=== PATIENT | female | born 1945 | race Caucasian/White ===

== ENCOUNTER 2017-09-16 18:45 | Emergency (ER) | payer MEDICARE, BC ==
[2017-09-16 19:09] VITALS: BP 164/86
--- NOTE | 2017-09-16 20:29 | EDM.PDOC ---
ED HPI GENERAL MEDICAL PROBLEM - General Chief Complaint: Cardiovascular Problem Stated Complaint: NEEDS LUNGS CHECKED-CHEMO PT Time Seen by Provider: 09/16/17 19:24 Source of Information: Reports: Patient, Family History Limitations: Reports: No Limitations - History of Present Illness INITIAL COMMENTS - FREE TEXT/NARRATIVE: This is a 72-year-old female. She has lymphoma. She got her last chemotherapy on August 24 and was released from the hospital last Tuesday. Her platelet count when she left the hospital was on 09/13 was 19,000 with a white count of 4.6 for hemoglobin of 9.2. On 09/16 the white count was 2.99 with a hemoglobin of 9.1 and platelets of 36,000. She states that since she's been out of the hospital whenever she tries to walk she starts getting very short of breath and her heart starts to pound she can only walk may be 20 feet and she has to sit down. She has no history of congestive heart failure. She states her legs are not any more swollen than they normally are. She has been drinking lots of fluids she has been eating she's been urinating and defecating okay. She is scheduled for a PET scan on the . She denies any fever or chills. She does have some chronic sinus drainage noted but no cough. Whenever she gets short of breath and has that heart pounding should develop some pressure in her chest. Once the shortness of breath, down in the pounding goes away the chest pressure goes away. Fever no chills no nausea or vomiting. Patient has gone through the fourth cycle of her chemotherapy which is the last one. - Related Data Allergies Allergy/AdvReac Type Severity Reaction Status Date / Time metolazone AdvReac Dizziness Verified 03/22/17 07:42 Home Meds: Home Meds Allopurinol 100 mg PO DAILY 03/03/14 [History] Losartan [Cozaar] 100 mg PO DAILY 03/03/14 [History] Metoprolol Tartrate 50 mg PO DAILY 03/03/14 [History] Multivit-Min/FA/Lycopene/Lut [Centrum Silver] 1 mg PO DAILY 03/03/14 [History] Nitroglycerin [Nitrostat] 0.4 mg SL ASDIRECTED PRN 03/03/14 [History] Olopatadine [Pataday 0.2% Ophth Soln] 1 drop OP DAILY PRN 03/03/14 [History] Diltiazem [Dilacor XR] 240 mg PO ACBRK #30 cap.er 03/06/14 [Rx] Cholecalciferol (Vitamin D3) [Vitamin D3] 1 tab PO DAILY 08/02/17 [History] Ondansetron [Zofran] 4 mg TOP ASDIRECTED 08/02/17 [History] Scopolamine [Transderm-Scop] 1 each TD ASDIRECTED 08/02/17 [History] Furosemide [Lasix] 20 mg PO DAILY #5 tab 09/16/17 [Rx] Potassium Bicarb/Potassium Chl [Potassium Chloride] 25 meq PO DAILY #5 tab.eff 09/16/17 [Rx] Past Medical History HEENT History: Reports: Impaired Vision, Sinusitis Cardiovascular History: Reports: Afib Respiratory History: Reports: SOB Gastrointestinal History: Reports: Chronic Diarrhea [employer] History: Reports: Musculoskeletal History: Reports: Arthritis Endocrine/Metabolic History: Reports: Diabetes, Type II Hematologic History: Reports: Anemia, Blood Transfusion(s) Oncologic (Cancer) History: Reports: Other (See Below) Other Oncologic History: B cell lymphoma large - Past Surgical History Cardiovascular Surgical History: Reports: Coronary Artery Stent Female Surgical History: Reports: Hysterectomy Social & Family History - Family History Family Medical History: Noncontributory - Tobacco Use Smoking Status *Q: Never Smoker Years of Tobacco use: 19 Used Tobacco, but Quit: Yes Month Tobacco Last Used: JUL - Caffeine Use Caffeine Use: Reports: Coffee - Alcohol Use Days Per Week of Alcohol Use: 0 - Recreational Drug Use Recreational Drug Use: No ED ROS GENERAL - Review of Systems Review Of Systems: See Below Constitutional: Reports: Malaise, Weakness, Fatigue. Denies: Fever, Chills HEENT: Reports: Sinus Problem Respiratory: Reports: Shortness of Breath. Denies: Wheezing, Cough Cardiovascular: Reports: Chest Pain, Edema. Denies: PND GI/Abdominal: Denies: Diarrhea, Nausea, Vomiting : Reports: No Symptoms Musculoskeletal: Reports: Other (Generalized extremity weakness) Skin: Reports: Pallor Neurological: Reports: No Symptoms Psychiatric: Reports: No Symptoms Hematologic/Lymphatic: Reports: Anemia ED EXAM, GENERAL - Physical Exam Exam: See Below Exam Limited By: No Limitations General Appearance: Alert, No Apparent Distress, Obese, Other (Very pale) Eye Exam: Bilateral Eye: Normal Inspection Ears: Normal External Exam, Normal Canal, Normal TMs Nose: Normal Inspection. No: Nasal Drainage, Clear Rhinorrhea Throat/Mouth: Normal Inspection, Normal Lips, Normal Oropharynx, Normal Voice, No Airway Compromise Head: Normocephalic Neck: Supple Respiratory/Chest: No Respiratory Distress, Lungs Clear, Normal Breath Sounds. No: Crackles, Rales, Rhonchi, Wheezing Cardiovascular: No Murmur, Irregularly Irregular GI/Abdominal: Other (Obese mild upper abdominal tenderness which is chronic no lower abdominal tenderness noted, no distention.) Back Exam: Decreased Range of Motion Extremities: Other (She has limited range of motion of her lower extremities just due to her condition, she does have puffy swelling noted and her feet and ankles and mildly in her lower legs, her upper extremities appear to be without abnormality) Neurological: Alert, Oriented Psychiatric: Normal Affect, Normal Mood Skin Exam: Warm, Dry, Pallor EKG INTERPRETATION EKG Interpretation Comments: EKG has atrial fibrillation, but there is no acute ST or T-wave changes and no ischemia and the rate is controlled. Course - Vital Signs Last Recorded V/S: Last Vital Signs Temp 97.5 F 09/16/17 19:05 Pulse 98 09/16/17 19:05 Resp 18 09/16/17 19:05 BP 164/86 H 09/16/17 19:05 Pulse Ox 97 09/16/17 19:05 - Orders/Labs/Meds Orders: Active Orders 24 hr Category Date Time Status EKG 12 Lead [EKG Documentation Completion] [RC] URGENT Care 09/16/17 20:00 Active Chest 2V [CR] Stat Exams 09/16/17 20:04 Taken Labs: Laboratory Tests 09/16/17 09/16/17 09/16/17 Range/Units 20:08 20:08 20:08 WBC 2.99 L (3.98-10.04) K/mm3 RBC 3.16 L (3.98-5.22) M/mm3 Hgb 9.1 L (11.2-15.7) gm/L Hct 27.0 L (34.1-44.9) % MCV 85.4 (79.4-94.8) fl MCH 28.8 (25.6-32.2) pg MCHC 33.7 (32.2-35.5) g/dl RDW Std Deviation 43.2 (36.4-46.3) fL Plt Count 36 L (182-369) K/mm3 MPV 11.6 (9.4-12.3) fl Neut % (Auto) 40.8 (34.0-71.1) % Lymph % (Auto) 29.1 (19.3-51.7) % Sierra % (Auto) 25.1 H (4.7-12.5) % Eos % (Auto) 0 L (0.7-5.8) Baso % (Auto) 0.3 (0.1-1.2) % Neut # (Auto) 1.22 L (1.56-6.13) K/mm3 Lymph # (Auto) 0.87 L (1.18-3.74) K/mm3 Sierra # (Auto) 0.75 H (0.24-0.36) K/mm3 Eos # (Auto) 0.00 L (0.04-0.36) K/mm3 Baso # (Auto) 0.01 (0.01-0.08) K/mm3 Manual Slide Review Abnormal smear Sodium 142 (136-145) mEq/L Potassium 3.3 L (3.5-5.1) mEq/L Chloride 104 (98-107) mEq/L Carbon Dioxide 27 (21-32) mEq/L Anion Gap 14.3 (5-15) BUN 12 (7-18) mg/dL Creatinine 0.8 (0.55-1.02) mg/dL Est Cr Clr Drug Dosing 53.28 mL/min Estimated GFR (MDRD) > 60 (>60) mL/min BUN/Creatinine Ratio 15.0 (14-18) Glucose 146 H (83-115) mg/dL Calcium 8.8 (8.5-10.1) mg/dL Total Bilirubin 0.4 (0.2-1.0) mg/dL AST 27 (15-37) U/L ALT 30 (14-59) U/L Alkaline Phosphatase 122 H (46-116) U/L Troponin I < 0.017 (0.00-0.056) ng/mL NT-Pro-B Natriuret Pep 659 H (0-125) pg/mL Total Protein 6.2 L (6.4-8.2) g/dl Albumin 3.0 L (3.4-5.0) g/dl Globulin 3.2 gm/dL Albumin/Globulin Ratio 0.9 L (1-2) - Radiology Interpretation Free Text/Narrative:: Chest x-ray does not suggest a large amount of congestive failure and there are no infiltrates noted. - Re-Assessments/Exams Free Text/Narrative Re-Assessment/Exam: 09/16/17 22:07 I spoke to the patient and the daughter regarding the lab work. Her white count has gone from 4.6 on the of 2.99 but her absolute white count tonight is 1200. Her hemoglobin has gone from 9.8 to 9.1. Her platelets have gone from 19, 000 to 36,000. It should be noted that her BNP was elevated. I spoke to Dr. Brennan at [facility] in [place] who is flight operations coordinator for oncology and he indicated that she in the hospital she would collect fluid as well. So we believe she is in some mild congestive failure as causing her shortness of breath or palpitations. He suggested we start Lasix 20 mg a day with 40 mEq of potassium and do this for about 5-7 days. I spoke to the family regarding this and she needs to take it easy especially over the weekend and not be too mobile and avoid getting short of breath. 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 Prescriptions: Furosemide [Lasix] 20 mg PO DAILY #5 tab Potassium Bicarb/Potassium Chl [Potassium Chloride] 25 meq PO DAILY #5 tab.eff Referrals: Norman Elizalde MD [Primary Care Provider] - Forms: ED Department Discharge Additional Instructions: When your home taking it easy over the weekend, avoid getting up and getting short of breath or having the heart palpitations if you can, take the Lasix 20 mg tablet and the 2 potassium tablets when you get home, didn't take the Lasix tablet and 2 more potassium tablets Saturday evening, then on Tuesday get the prescriptions filled, follow-up with your oncologist on Tuesday by giving him a call about how you're feeling, if your symptoms seem to worsen return to the ER over the weekend - My Orders Last 24 Hours: My Active Orders 09/16/17 20:00 EKG 12 Lead [EKG Documentation Completion] [RC] URGENT 09/16/17 20:04 Chest 2V [CR] Stat - Assessment/Plan Last 24 Hours: My Active Orders 09/16/17 20:00 EKG 12 Lead [EKG Documentation Completion] [RC] URGENT 09/16/17 20:04 Chest 2V [CR] Stat
[2017-09-16] MEDS ORDERED: Furosemide 20 MG Tab PO ONE (22:05)
[2017-09-16] MEDS ORDERED: Potassium Chloride 20 MEQ Tab.ER PO ONE (22:06)
--- NOTE | 2017-09-17 14:30 | CR ---
Chest: Two views of the chest were obtained. Comparison: Prior chest x-ray of 03/03/14. Heart size is normal. Tortuous thoracic aorta is seen. Minimal atelectasis is noted within the right lateral costophrenic angle. Lungs otherwise are clear. Prior right shoulder surgery is seen. Scoliosis and degenerative spurring is noted within the spine. Impression: 1. Slight atelectasis within the right lateral costophrenic angle. 2. Other incidental findings. Nothing acute is seen. Diagnostic code #2
== END 2017-09-16 22:24 | disposition home or self-care (01) ==
LOC: JD.ED 18:45
DX: I50.9 Heart failure, unspecified (principal); I48.91 Unspecified atrial fibrillation; D64.81 Anemia due to antineoplastic chemotherapy; C85.10 Unspecified B-cell lymphoma, unspecified site; D69.6 Thrombocytopenia, unspecified; D70.2 Other drug-induced agranulocytosis; E11.9 Type 2 diabetes mellitus without complications; Z95.5 Presence of coronary angioplasty implant and graft; Z87.891 Personal history of nicotine dependence; Z79.899 Other long term (current) drug therapy; Z88.8 Allergy status to other drugs, medicaments and biological substances
CPT/HCPCS: 36415; 71046; 71046-26; 80053; 83880; 84484; 85025; 93005; 99284; 99285-25

== ENCOUNTER 2023-11-13 17:38 | Emergency (ER) | payer MEDICARE, BC ==
[2023-11-13] MEDS: Sodium Chloride 0.9% 10 ML Syringe FLUSH PRN ×2 (18:27→19:35)
[2023-11-13 18:34] LABS: BASOPHILS PERCENT AUTO 0.4 % (0.0-1.0); EOSINOPHILS ABSOLUTE AUTO 0.2 K/mm3 (0.0-0.4); EOSINOPHILS PERCENT AUTO 3.9 % (0.0-6.0); HEMATOCRIT 34.2 % (37.0-47.0); HEMOGLOBIN 10.6 gm/dl (12.0-16.0); IMMATURE GRAN ABSOLUTE AUTO 0.03 K/mm3 (0.00-0.05); IMMATURE GRAN PERCENT AUTO 0.6 % (0.0-0.4); LYMPHOCYTES ABSOLUTE AUTO 1.3 K/mm3 (1.0-4.8); MEAN CORPUSCULAR HEMOGLOBIN 29.7 pg (28.0-32.0); MEAN CORPUSCULAR VOLUME 95.8 fl (83.0-99.0); MEAN PLATELET VOLUME 10.2 fl (9.4-12.3); MONOCYTES ABSOLUTE AUTO 0.6 K/mm3 (0.0-0.8); NEUTROPHILS ABSOLUTE AUTO 2.8 K/mm3 (1.8-7.7); NEUTROPHILS PERCENT AUTO 56.1 % (41.0-71.0); PLATELET COUNT,PLT 198 K/mm3 (150-400); RED BLOOD CELL COUNT 3.57 M/mm3 (4.10-5.30); WHITE BLOOD CELL COUNT,WBC 4.93 K/mm3 (3.9-11.3)
[2023-11-13 19:06] LABS: A/G RATIO 0.7 (1-2); ANION GAP 14.7 (5-15); BILIRUBIN TOTAL 0.6 mg/dL (0.2-1.0); BUN/CREATININE RATIO 10.8 (14-18); CALCIUM 9.5 mg/dL (8.5-10.1); CREATININE 1.2 mg/dL (0.55-1.02); EST CRCL DRUG DOSING (CG) 32.29 mL/min; MAGNESIUM 2.1 mg/dL (1.8-2.4); POTASSIUM,K 3.7 mEq/L (3.5-5.1); PROTEIN TOTAL,TP 7.3 g/dl (6.4-8.2)
[2023-11-13 19:14] LABS: TSH 2.373 uIU/mL (0.358-3.74)
[2023-11-13] MEDS: Iopamidol 755 Mg/ML 100 ML Bottle IVPUSH ONE (19:34)
[2023-11-13] MEDS ORDERED: Sodium Chloride 0.9% 100 ML IV SCH (19:45)
[2023-11-13 20:38] LABS: APPEARANCE,URINE CLEAR (Clear); BILIRUBIN,URINE NEGATIVE (Negative); COLOR,URINE AMBER (Yellow); GLUCOSE,URINE TRACE (Negative); KETONES,URINE TRACE (Negative); LEUKOCYTE ESTERASE,URINE TRACE (Negative); NITRITE,URINE NEGATIVE (Negative); OCCULT BLOOD,URINE TRACE-INTACT (Negative); PH,URINE 5.5 (5.0-8.0); PROTEIN,URINE 2+ (Negative); UROBILINOGEN,URINE 0.2 (0.2-1.0)
[2023-11-13 20:52] LABS: BACTERIA,URINE FEW /hpf (FEW); MUCUS,URINE FEW /hpf (FEW); RBC,URINE 0-5 /hpf (0-5)
[2023-11-13 22:11] VITALS: BP 139/65; PULSE 89
== END 2023-11-13 22:03 | disposition home or self-care (01) ==
LOC: JD.ED 17:38
DX: N30.00 Acute cystitis without hematuria (principal); I48.91 Unspecified atrial fibrillation; I25.10 Atherosclerotic heart disease of native coronary artery without angina pectoris; I50.9 Heart failure, unspecified; E11.9 Type 2 diabetes mellitus without complications; Z88.0 Allergy status to penicillin; Z88.8 Allergy status to other drugs, medicaments and biological substances; Z88.4 Allergy status to anesthetic agent; Z79.82 Long term (current) use of aspirin; Z79.899 Other long term (current) drug therapy; Z79.4 Long term (current) use of insulin; Z79.01 Long term (current) use of anticoagulants; Z95.5 Presence of coronary angioplasty implant and graft; Z90.710 Acquired absence of both cervix and uterus
CPT/HCPCS: 36415; 71275; 80053; 81001; 81003; 83735; 83880; 84443; 84484; 85025; 87086; 93005; 99285; J3490; Q9967; 87088; 87186; 93010; 99284